=== PATIENT | female | born 1970 | race Caucasian/White ===

== ENCOUNTER 2016-11-15 11:02 | Day surgery (SDC) | payer MEDICAID ==
[2016-11-14 16:41] VITALS: Ht 162.6 cm; Wt 75.0 kg
[2016-11-15] VITALS (20 sets, daily range): BP systolic 90–168; BP diastolic 57–74; PULSE 64–80; RESP 14–19
[~2016-11-15] VITALS: Ht 162.6 cm; Wt 75.0 kg
[~2016-11-15 11:02] MED LIST: DIPHENHYDRAMINE 50 MG INJ IV PRN; HYDROmorphONE (0.2 MG/ML) 10ML SYG IV PRN; KETOROLAC 15 MG INJ IV ONE; MEPERIDINE 25 MG INJ IV PRN; METOCLOPRAMIDE 10 MG INJ IV PRN; ONDANSETRON 4 MG INJ IV PRN; OXYCODONE/ACETAMINOPHEN (5/325) TAB PO PRN; PROCHLORPERAZINE 10 MG INJ IV PRN
[2016-11-15 11:55] LABS: BASOPHILS % 0.7 % (0.0-2.0); EOSINOPHILS # 0.1 10^3/ul (0.0-0.5); EOSINOPHILS % 1.7 % (0.0-7.0); HEMATOCRIT 32.4 % (37.0-47.0); HEMOGLOBIN 10.6 g/dl (12.0-16.0); LYMPHOCYTES # 0.9 10^3/ul (0.8-2.9); MEAN CORPUSCULAR HEMOGLOBIN 25.7 pg (29.0-33.0); MEAN CORPUSCULAR HGB CONC 32.8 g/dl (32.0-37.0); MEAN CORPUSCULAR VOLUME 78.2 fl (82.0-101.0); MEAN PLATELET VOLUME 7.7 fl (7.4-10.4); MONOCYTE # 0.2 10^3/ul (0.3-0.9); MONOCYTES % 3.2 % (0.0-11.0); NEUTROPHIL # 5.7 10^3/ul (1.6-7.5); NEUTROPHILS % 81.4 % (39.0-77.0); PLATELET COUNT 389 10^3/UL (140-440); RED BLOOD COUNT 4.15 10^6/ul (4.20-5.40); RED CELL DISTRIBUTION WIDTH 19.8 % (11.5-14.5)
[2016-11-15] MEDS ORDERED: SOD CHLORIDE 0.9% 1,000 ML IV ONE (12:00)
[2016-11-15] MEDS ORDERED: CEFAZOLIN 2 GM/50 ML (PMX) 50 ML IVPB ONE (12:00)
[2016-11-15 12:06] LABS: INR 1.01; PROTIME 13.3 Sec (12.2-14.2)
[2016-11-15 12:07] LABS: PARTIAL THROMBOPLASTIN TIME 32.4 Sec (25.0-35.0)
[2016-11-15 12:09] LABS: CALCIUM 8.5 mg/dl (8.4-10.2); CREATININE 0.64 mg/dl (0.44-1.00); POTASSIUM 4.1 mmol/L (3.5-5.1)
[2016-11-15 12:30] LABS: CONDITION 1; LH ANALYZER COMMENTS 1
[2016-11-15] MEDS ORDERED: MIDAZOLAM 1 MG/ML 2 ML INJ ONE (12:55)
[2016-11-15] MEDS ORDERED: PROPOFOL 20 ML ONE (12:55)
[2016-11-15] MEDS ORDERED: LIDOCAINE 2% (SDV) 5 ML INJ ONE (12:55)
[2016-11-15] MEDS ORDERED: FENTAnyl 50 MCG/ML VIAL ONE (12:55)
[2016-11-15] MEDS ORDERED: CEFAZOLIN 1 GM INJ ONE (12:55)
[2016-11-15] MEDS ORDERED: morphine 2 MG INJ IV PRN (15:00)
[2016-11-15] MEDS ORDERED: ONDANSETRON 4 MG INJ IV PRN (15:00)
[2016-11-15] MEDS ORDERED: ACETAMINOPHEN 1000MG/100ML IV 100 ML IVPB PRN (15:00)
[2016-11-15] MEDS ORDERED: ONDANSETRON 4 MG INJ ONE (15:24)
[2016-11-15] MEDS ORDERED: METOCLOPRAMIDE 10 MG INJ ONE (15:24)
[2016-11-15] MEDS ORDERED: HYDROmorphONE 2 MG/ML SYG ONE (15:41)
--- NOTE | 2016-11-15 16:58 | OPR ---
DATE OF OPERATION: 11/15/2016 PREOPERATIVE DIAGNOSIS: Inflammatory cancer, left breast. POSTOPERATIVE DIAGNOSIS: Inflammatory cancer, left breast. OPERATION PERFORMED: Left modified radical mastectomy. ANESTHESIA: General. ANESTHESIOLOGIST: Joan Cole MD SURGEON: Ovidio Gore MD RENAL MEDICINE SPECIALIST: Dr. Lovell INDICATIONS FOR PROCEDURE: The patient is a 46-year-old female who presented with inflamed left yissel ast, highly suspicious for inflammatory cancer which was confirmed on biopsy. The patient then rece ived neoadjuvant chemotherapy. She has completed it with very good response. She now presents for left modified radical mastectomy. DESCRIPTION OF PROCEDURE: The patient was brought to the operating theater, placed under general en dotracheal tube anesthesia. The left breast and axillary regions were prepped and draped in usual s terile fashion. Planned elliptical incision around the nipple areolar complex and additional skin o f the breasts was demarcated with marking pen and carried out with 15 blade scalpel. Subcutaneous t issue was dissected with cautery. Allis-Tyron clamps were then used to elevate the skin edges, and skin flaps were created with cautery sequentially, first to the clavicle superiorly, then to the clayton rnal border medially, to the inframammary fold inferiorly, and laterally until the latissimus dorsi muscle had been identified throughout its course. Mastectomy then took place from medial to lateral using cautery. At the border of the pectoralis major muscle, the pectoralis minor muscle was ident ified. The clavipectoral fascia was incised with blunt dissection along the chest wall. The long t horacic nerve was identified and kept out of harm's way. More superiorly, the axillary vein was leonora ntified and dissected from medial to lateral. The thoracodorsal neurovascular bundle was then ident ified and kept out of harm's way. Node bearing tissue between the long thoracic nerve and the thora codorsal nerve was meticulously harvested using the LigaSure device. Final connective tissue attach ments to latissimus dorsi muscle were then transected with cautery. The specimen was removed, orien aba, and sent for permanent pathologic analysis. The wound was irrigated. Minimal residual bleedin g was controlled with cautery. Two #10 flat Calvin-Trejo drains were then brought through the left mid axillary line. One was cut to size and laid within the axilla. The other was laid over the pe ctoralis major muscle. Both drains were secured in place in the standard fashion with a 2-0 nylon s uture. The skin was then reapproximated with a deep dermal layer of 4-0 Vicryl sutures, followed by final skin approximation with 5-0 PDS. Benzoin and Steri-Strips were then applied. The patient to lerated the procedure well. The estimated blood loss was 30 mL. There were no complications, and t he patient was transported in stable condition to the recovery room. Dictated By: OVIDIO PINZON/SALTY Conf#: [id number] DID#: [id number]
[2016-11-15] MEDS: FENTAnyl 50 MCG/ML VIAL IV PRN ×3 (17:24→18:26)
--- NOTE | 2016-11-15 18:15 | HP ---
DATE OF ADMISSION: 11/15/2016 CHIEF COMPLAINT AND HISTORY OF PRESENT ILLNESS: The patient is a 46-year-old female with a known hi story of left breast cancer. Patient subsequently underwent neoadjuvant chemotherapy. The patient had a good clinical response and was seen by Dr. Gore as an outpatient. The patient underwent left modified radical mastectomy. The patient had significant postoperative pain and is being admitted for further evaluation and management. The patient denied any recent history of nausea, vomiting, o r diarrhea. No history of headache, dizziness, syncope. No history of angina. No history of hyper tension or diabetes. No history of fever or chills. No history of dysuria or hematuria. REVIEW OF SYSTEMS: Unremarkable. PAST SURGICAL HISTORY: Patient is status post Port-A-Cath placement. ALLERGIES: NONE. SOCIAL HISTORY: No history of smoking or alcohol. FAMILY HISTORY: Patient's maternal aunt has history of breast cancer. MEDICATIONS PRIOR TO ADMISSION: None. PHYSICAL EXAMINATION: GENERAL: The patient is conscious, awake, alert. VITAL SIGNS: Blood pressure 164/72, pulse 68, respirations 18, temperature 97.6. HEENT: Atraumatic, normocephalic. Conjunctivae and lids normal. Oropharynx clear. NECK: Supple. No mass, no thyromegaly. CHEST: Fairly clear. No use of accessory muscles. CARDIOVASCULAR: S1, S2 normal. No murmur, gallop, or rub. ABDOMEN: Soft, nondistended, nontender. Bowel sounds plus. EXTREMITIES: No leg edema. Pedal pulses palpable. SKIN: Without acute rash or ulcer. NEUROLOGIC: The patient is awake, alert, oriented with no gross focal deficit. LABORATORY DATA: WBC 7, hemoglobin 10.6, platelets 39. Sodium 142, potassium 4.1, BUN 10, creatin ine 0.6, glucose 93, calcium 8.4. The patient also had echocardiogram done in July 2016, which revealed EF of 60%. IMPRESSION: Left breast cancer status post chemotherapy. Today, underwent left modified radical m astectomy. PLAN: Patient admitted on medical floor. Patient will be started on clear liquid diet, advance as tolerated. Patient will be given IV Tylenol, Percocet and IV morphine for pain control, depending o n the severity. The patient will also be given IV fluid. Patient will have SCD for DVT prophylaxis and Zofran for nausea, vomiting. Further recommendation will depend on patient's hospital course a nd recommendations from surgery. Dictated By: HARSH DAHL/SALTY Conf#: [id number] DID#: [id number]
[2016-11-15] MEDS: D5W-0.45 NACL + KCL 20 MEQ 1,000 ML IV SCH ×2 (20:10→21:39)
[2016-11-16] VITALS: BP 90/55; RESP 16
[2016-11-16 04:00] VITALS: BP 97/59; PULSE 77; RESP 18
[2016-11-16] MEDS: D5W-0.45 NACL + KCL 20 MEQ 1,000 ML IV SCH ×2 (04:30→04:55)
[2016-11-16 07:49] VITALS: BP 89/53; RESP 20
[2016-11-16] MEDS: FENTAnyl 50 MCG/ML VIAL IV PRN (07:49)
--- NOTE | 2016-11-16 09:11 | PN ---
Date/Time of Note Date/Time of Note DATE: 11/16/16 TIME: 09:11 Assessment/Plan VTE Prophylaxis VTE Prophylaxis Intervention: other Lines/Catheters IV Catheter Type (from Nrsg): Peripheral IV Assessment/Plan Chief Complaint/Hosp Course 1) breast cancer - s/p mastectomy Problems: Subjective 24 Hr Interval Summary Free Text/Dictation Patient complain of some pain but controlled Exam/Review of Systems Vital Signs Vitals Vital Signs Date Time Temp Pulse Resp B/P Pulse Ox O2 Delivery O2 Flow Rate FiO2 11/16/16 07:49 97.8 74 20 89/53 97 11/16/16 04:00 Room Air Intake and Output 11/15/16 11/15/16 11/16/16 15:00 23:00 07:00 Intake Total 1040 ml 1262 ml Output Total 30 ml Balance 1010 ml 1262 ml Exam Constitutional: well developed Head: atraumatic, normocephalic Neck: supple Respiratory: clear to auscultation Cardiovascular: regular rate and rhythm Gastrointestinal: non-tender, soft Results Result Diagram: 11/15/16 1135 11/15/16 1135 Results 24 hrs Laboratory Tests Test 11/15/16 11:35 Activated Partial Thromboplast Time 32.4 Anion Gap 15 Basophils # 0.0 Basophils % 0.7 Blood Morphology Comment Blood Urea Nitrogen 10 Calcium Level 8.5 Carbon Dioxide Level 24 Chloride Level 107 Creatinine 0.64 Eosinophils # 0.1 Eosinophils % 1.7 Glucose Level 93 Hematocrit 32.4 L Hemoglobin 10.6 L INR International Normalized Ratio 1.01 Lymphocytes # 0.9 Lymphocytes % 13.0 L Mean Corpuscular Hemoglobin 25.7 L Mean Corpuscular Hemoglobin Concent 32.8 Mean Corpuscular Volume 78.2 L Mean Platelet Volume 7.7 Monocytes # 0.2 L Monocytes % 3.2 Neutrophils # 5.7 Neutrophils % 81.4 H Nucleated Red Blood Cells # 0.0 Nucleated Red Blood Cells % 0.0 Platelet Count 389 Potassium Level 4.1 Prothrombin Time 13.3 Prothrombin Time Ratio 1.0 Red Blood Count 4.15 L Red Cell Distribution Width 19.8 H Sodium Level 142 White Blood Count 7.0 Medications Medications Current Medications Ondansetron HCl 4 mg 4 mg Q6H PRN IV NAUSEA AND/OR VOMITING; Start 11/15/16 at 15:00 Potassium Chloride/Dextrose/ Sod Cl (D5-1/2ns + KCl 20 Meq) 1,000 ml @ 125 mls/ hr Q8H IV Last administered on 11/16/16t 04:30; Admin Dose 125 MLS/HR; Start at 14:36 Morphine Sulfate 2 mg 2 mg Q1H PRN IV PAIN; Start 11/15/16 at 15:00 Acetaminophen (Ofirmev 1000mg/ 100ml Iv) 100 ml @ 400 mls/hr Q6H PRN IVPB PAIN ; Start 11/15/16 at 15:00 MAIRVEL DOSS Nov 16, 2016 09:11
--- NOTE | 2016-11-16 13:57 | PN ---
DATE: 11/16/2016 SUBJECTIVE: The patient states that she has swelling of the lower extremity and the dorsum of the r ight hand. She does not have that much pain, but even though, she got 1 dose of 2 mg of morphine se veral hours ago. She has been urinating and has had a bowel movement today. No fevers, no chills. OBJECTIVE: GENERAL: Awake, alert, oriented x3, currently sitting in the bed. VITAL SIGNS: Temperature 97.8, heart rate 74 and regular, respirations 20, blood pressure 89/53, sa turations 97%. The chest dressing is intact. Calvin-Trejo drainage tube is draining serosanguineous. Altogether it has drained about 30 mL since the operation. The dressing is not that tight. I examined the dorsum of the right hand. There is trace pitting edema, but there is no edema on the forearm or arm. The lower extremities, probably there is 1+ or trace pitting edema bilaterally over the anterior tibial. The patient denies any leg pain, thigh pain, abdominal pain, or chest pain. There is no swelling of the dorsum of the left hand, the side that the patient has had the operation . There is an IV running on the right antecubital fossa area. ASSESSMENT: Patient is a 46-year-old status post chemotherapy for inflammatory cancer of the breast and is status post a modified radical mastectomy yesterday, done by Dr. Gore. Today the patient i s complaining of some edema of the lower extremity and right hand. I examined the patient already a nd I cannot find any reason for this. I am not sure exactly what is going on. Just to be on the saf e side and not to miss anything, we are going to get a Doppler venous evaluation of the lower extrem ity and upper extremity on the right side to rule out deep venous thrombosis. Also will check a CBC and CMP today before the patient goes home. Dictated By: JESSE ZAVALA/SALTY Conf#: [id number] DID#: [id number]
--- NOTE | 2016-11-16 14:05 | RADRPT ---
PROCEDURE: US bilateral lower extremity veins. CLINICAL INDICATION: Bilateral leg pain and swelling. TECHNIQUE: Multiple longitudinal and transverse images of the bilateral lower extremity veins were obtained with lemon scale and color Doppler imaging. The common femoral vein, femoral vein, and popl iteal vein were evaluated. 2D grayscale measurements with compression sonography, color Doppler, and pulsed Doppler with augmentation. COMPARISON: No prior studies are available for comparison. FINDINGS: The bilateral common femoral, femoral and popliteal veins are normally compressible throughout. Col or flow demonstrates normal filling of the vessels. Normal waveforms are visualized and there is no rmal response to augmentation. IMPRESSION: 1. No evidence of deep vein thrombosis involving either lower extremity. RPTAT: QQ .Oh Barragan MD, MD Date Time Electronically viewed and signed by .Oh Barragan MD, on 11/16/2016 14:04 .R/
--- NOTE | 2016-11-16 14:14 | RADRPT ---
PROCEDURE: Right upper extremity venous ultrasound CLINICAL INDICATION: Right arm pain and swelling, deep venous thrombosis TECHNIQUE: Aceves scale, color doppler, spectral doppler ultrasound imaging of the venous system of the right upper extremity. Augmentation maneuvers were utilized. COMPARISON: No prior studies are available for comparison. FINDINGS: RIGHT: Internal jugular vein: Patent. Subclavian vein: Patent. Axillary vein: Patent. Brachial vein: Patent. Basilic vein: Patent. Cephalic vein: Patent. Radial vein: Patent. Ulnar vein: Patent. IMPRESSION: No evidence of a deep vein thrombosis involving the right upper extremity. RPTAT: AADD .Beny Donahue MD, MD Date Time Electronically viewed and signed by .Beny Donahue MD, on 11/16/2016 14:14 .B/
[2016-11-16 15:09] LABS: BASOPHIL # 0.1 10^3/ul (0.0-0.1); BASOPHILS % 0.8 % (0.0-2.0); EOSINOPHILS # 0.1 10^3/ul (0.0-0.5); EOSINOPHILS % 1.7 % (0.0-7.0); HEMATOCRIT 28.9 % (37.0-47.0); HEMOGLOBIN 9.6 g/dl (12.0-16.0); LYMPHOCYTES # 0.8 10^3/ul (0.8-2.9); LYMPHOCYTES % 10.1 % (15.0-51.0); MEAN CORPUSCULAR HEMOGLOBIN 26.1 pg (29.0-33.0); MEAN CORPUSCULAR HGB CONC 33.2 g/dl (32.0-37.0); MEAN CORPUSCULAR VOLUME 78.7 fl (82.0-101.0); MEAN PLATELET VOLUME 7.5 fl (7.4-10.4); MONOCYTE # 0.3 10^3/ul (0.3-0.9); MONOCYTES % 3.8 % (0.0-11.0); NEUTROPHIL # 6.2 10^3/ul (1.6-7.5); NEUTROPHILS % 83.6 % (39.0-77.0); PLATELET COUNT 382 10^3/UL (140-440); RED BLOOD COUNT 3.67 10^6/ul (4.20-5.40); RED CELL DISTRIBUTION WIDTH 20.1 % (11.5-14.5); UNCORRECTED WBC 7.4 10^3/ul (4.8-10.8); WHITE BLOOD COUNT 7.4 10^3/ul (4.8-10.8)
[2016-11-16 15:14] LABS: CONDITION 1; LH ANALYZER COMMENTS 1
[2016-11-16 15:33] LABS: ALBUMIN 2.8 g/dl (3.3-4.9)
[2016-11-16 15:36] LABS: BILIRUBIN,INDIRECT 0.1 mg/dl (0-1.1); BILIRUBIN,TOTAL 0.1 mg/dl (0.2-1.3); CREATININE 0.62 mg/dl (0.44-1.00)
[2016-11-16 15:37] LABS: CALCIUM 7.6 mg/dl (8.4-10.2); TOTAL PROTEIN 5.6 g/dl (6.1-8.1)
--- NOTE | 2016-11-16 16:21 | DS ---
Date/Time of Note Date/Time of Note DATE: 11/16/16 TIME: 16:20 Discharge Summary Admission/Discharge Info Admit Date/Time 11/15/16 Discharge Date/Time 11/16/16 Final Diagnosis left breast cancer Patient Condition: Fair Consults surgery Hospital Course Patient with breast cancer comes in for mastectomy. She tolerated the procedure and when cleared by surgery, she was sent home. 1) breast cancer - s/p mastectomy Home Meds No Active Prescriptions or Reported Meds Pending Labs Laboratory Tests Test 11/16/16 14:55 Alanine Aminotransferase (ALT/SGPT) 36IU/L (13-69) Albumin 2.8g/dl (3.3-4.9) Albumin/Globulin Ratio 1.00 Alkaline Phosphatase 210IU/L (42-121) Anion Gap 13 (8-16) Aspartate Amino Transf (AST/SGOT) 49IU/L (15-46) Basophils # 0.110^3/ul (0.0-0.1) Basophils % 0.8% (0.0-2.0) Blood Morphology Comment Blood Urea Nitrogen 6mg/dl (7-20) Calcium Level 7.6mg/dl (8.4-10.2) Carbon Dioxide Level 23mmol/L (21-31) Chloride Level 110mmol/L (97-110) Creatinine 0.62mg/dl (0.44-1.00) Direct Bilirubin 0.00mg/dl (0.00-0.20) Eosinophils # 0.110^3/ul (0.0-0.5) Eosinophils % 1.7% (0.0-7.0) Globulin 2.80g/dl (1.3-3.2) Glucose Level 106mg/dl (70-220) Hematocrit 28.9% (37.0-47.0) Hemoglobin 9.6g/dl (12.0-16.0) Indirect Bilirubin 0.1mg/dl (0-1.1) Lymphocytes # 0.810^3/ul (0.8-2.9) Lymphocytes % 10.1% (15.0-51.0) Mean Corpuscular Hemoglobin 26.1pg (29.0-33.0) Mean Corpuscular Hemoglobin Concent 33.2g/dl (32.0-37.0) Mean Corpuscular Volume 78.7fl (82.0-101.0) Mean Platelet Volume 7.5fl (7.4-10.4) Monocytes # 0.310^3/ul (0.3-0.9) Monocytes % 3.8% (0.0-11.0) Neutrophils # 6.210^3/ul (1.6-7.5) Neutrophils % 83.6% (39.0-77.0) Nucleated Red Blood Cells # 0.010^3/ul (0.0-0.0) Nucleated Red Blood Cells % 0.0/100WBC (0.0-0.0) Platelet Count 13990^3/UL (140-440) Potassium Level 4.0mmol/L (3.5-5.1) Red Blood Count 3.6710^6/ul (4.20-5.40) Red Cell Distribution Width 20.1% (11.5-14.5) Sodium Level 142mmol/L (135-144) Total Bilirubin 0.1mg/dl (0.2-1.3) Total Protein 5.6g/dl (6.1-8.1) White Blood Count 7.410^3/ul (4.8-10.8) MARIVEL DOSS Nov 16, 2016 16:21
--- NOTE | 2016-11-16 18:26 | PN ---
DATE: 11/16/2016 SUBJECTIVE: As was mentioned in my morning progress note, the patient said that she feels that she has swelling of the lower extremities and dorsum of the right hand. So, we decided to proceed with evaluation of the deep venous system. The ultrasound of both lower extremities and right upper extremity was done. The report states no evidence of deep vein thrombosis involving the right upper extremity #1, and for the lower extremity, the ultrasound report states that there is no evidence of deep vein thrombosis involving either lower extremity. Then, the blood test which was done today revealed a WBC 7400 , which is normal as before operation. Hemoglobin is almost at the range of preoperation which is 9.6 and hematocrit 29.8. Platelets 382, the same. Chemistry today reveals BUN of 6, creatinine 0.62. Calcium is 7.6, which is low (it should mentioned that albumin is 2.8 which explains low calcium as well) . Alkaline phosphatase is 210 high, and total protein is 5.6, and albumin is 2.8. This low protein and albumin can explain evidence of trace pitting edema of both lower extremities and right hand edema. I discussed the findings with the patient and patient's family including her daughter and they agree that the patient has not been eating well in the past couple of months or so. In any case, the patient can be discharged from surgical point of view. The nurses will check with Dr. Meyer, who is covering for Dr. Cr and then if they decide, they can discharge the patient.follow up by Dr. Gore. Dictated By: JESSE ZAVALA/SALTY Conf#: [id number] DID#: [id number] MTDD
== END 2016-11-16 16:50 | disposition home or self-care (01) ==
LOC: SDS 11:02 → MS2 18:40 → SDS 11-16 16:50
PROVIDERS: ATTEND Surgery Surgical Oncology
DX: D05.12 Intraductal carcinoma in situ of left breast (principal)
CPT/HCPCS: 19307; 80048; 80053; 84703; 85025; 85610; 85730; 88305; 93970; 93971; J0690; J1170; J2250; J2270; J2405; J2765; J3010; J3480; Z7512; Z7610

== ENCOUNTER 2016-12-10 11:11 | Emergency (ER) | payer MEDICAID ==
[~2016-12-10] VITALS: Ht 160 cm; Wt 74.0 kg
[2016-12-10 11:14] VITALS: Ht 160 cm; Wt 74.0 kg
--- NOTE | 2016-12-10 12:41 | RADRPT ---
PROCEDURE: XR Chest AP portable CLINICAL INDICATION: Short of breath, cough TECHNIQUE: An AP portable radiograph of the chest was submitted. COMPARISON: None. FINDINGS: Support Hardware: A right subclavian Port-A-Cath is evident with the tip at the atriocaval junction. Cardiovascular: The cardiovascular silhouette appears unremarkable. Lung Blount: Infiltrates are seen within the lower lung zones bilaterally. Pleural Spaces: There is a small left pleural fluid accumulation. No pneumothorax is evident. Osseous Structures: There is an old fracture deformity involving the distal third of the right clavi sreedhar. Soft Tissues: The left breast is not identified. IMPRESSION: 1. Right-sided Port-A-Cath satisfactorily positioned. 2. Bilateral lower lung zone alveolar infiltrates. 3. Small left pleural fluid accumulation 4. Old fracture deformity involving the right clavicle. 5. Absent left breast. Physician Lluvia Date Time Electronically viewed and signed by Physician Lluvia on 12/10/2016 12:40 /
[2016-12-10] MEDS ORDERED: AZITHROMYCIN 250 MG TAB PO STA (12:57)
[2016-12-10] MEDS ORDERED: AZIT250T94 PO (13:02)
[2016-12-10] MEDS ORDERED: PROM25TA14 PO (13:03)
[2016-12-10] MEDS ORDERED: ACET325T33 PO (13:04)
--- NOTE | 2016-12-10 13:20 | ERD ---
ER Documentation Chief Complaint Date/Time DATE: 12/10/16 TIME: 13:08 Chief Complaint fever and cough x 3 days with SOB on exertion HPI This is a 46-year-old female with a history of breast carcinoma stage IV presenting to the emergency room complaining of fever, cough and shortness of breath with deep inhalation for the past 3 days. Patient states that she had a lumpectomy last month, she states that she is unsure if that it metastases her lungs. Patient states that she started chemo in September. She denies taking any other medications. ROS All systems reviewed and are negative except as per history of present illness. Medications Home Meds Active Scripts Acetaminophen* (Tylenol*) 325 Mg Tablet, 2 TAB PO Q4 Y for PAIN AND OR ELEVATED TEMP, #30 TAB Prov:SIMON KING PA-C 12/10/16 Promethazine Hcl* (Phenergan*) 25 Mg Tablet, 25 MG PO Q6 Y for NAUSEA AND/OR VOMITING, #10 TAB Prov:SIMON KING PA-C 12/10/16 Azithromycin* (Zithromax*) 250 Mg Tablet, 250 MG PO DAILY for 4 Days, TAB Prov:SIMON KING PA-C 12/10/16 Allergies Allergies: Coded Allergies: No Known Allergy (Unverified , 11/14/16) PMhx/Soc History of Surgery: Yes (LT BREAST SX ON 11/15/16) Anesthesia Reaction: No Hx Neurological Disorder: No Hx Respiratory Disorders: No Hx Cardiac Disorders: No Hx Psychiatric Problems: No Hx Miscellaneous Medical Probl: Yes (LT BREAST CANCER 2016) Hx Alcohol Use: No Hx Substance Use: No Hx Tobacco Use: No Smoking Status: Never smoker Physical Exam Vitals Vital Signs Date Time Temp Pulse Resp B/P Pulse Ox O2 Delivery O2 Flow Rate FiO2 12/10/16 11:14 98.5 69 18 119/61 99 Physical Exam GENERAL: well-developed/well-nourished, in no apparent distress, non-toxic appearing HEAD: NC/AT, no swelling noted in frontal or maxillary areas EARS: bilateral tympanic membrane is intact without erythema or effusion NARES: nares patent, rhinorrhea and congested THROAT: oropharynx erythematous without exudates, no tonsil enlargement, post nasal drip EYES: Conjunctiva normal NECK: Supple, no lymphadenopathy PULM: Bilateral decreased breath sounds CV: Normal S1S2, RRR, good capillary refill GI: Soft, non-distended, normal bowel sounds, non-tender BACK: No midline tenderness, no masses EXT No clubbing, cyanosis, or edema NEURO: Alert and Orientated SKIN: Intact, normal turgor PSYCH: Normal mood and mentation Results 24 hrs Current Medications Medications (Trade) Dose Ordered Sig/Krystina Route PRN Reason Start Time Stop Time Status Last Admin Dose Admin Azithromycin (Zithromax) 500 mg ONCE STAT PO 12/10/16 12:57 12/10/16 12:59 DC Procedures/MDM This is a 46-year-old female history of breast carcinoma stage IV did chemo in September with a lumpectomy on November 15 presenting to the emergency department with complaint of fever, cough, shortness of breath on exertion for the past 3 days. Patient appears well, she is speaking clearly. Patient is not tachycardic her pulse is 69 and she is breathing well on room air. Patient's pulse ox was 99%. On examination patient had mild decreased breath sounds in the lower lobes. A chest x-ray was done and radiologist stated: 1. Right-sided Port-A-Cath satisfactorily positioned. 2. Bilateral lower lung zone alveolar infiltrates. 3. Small left pleural fluid accumulation 4. Old fracture deformity involving the right clavicle. 5. Absent left breast. EKG was done and did not show any evidence of T-wave abnormalities. At this time it appears that patient has bilateral pneumonia with a small left pleural fluid accumulation. I will low suspicion for pulmonary embolism, she is not tachycardic and she is breathing well on room air, she seems to be in no distress. In the ED patient was given first dose of azithromycin and will be given prescription for the next 4 days. I discussed with patient to follow-up with her primary care physician tomorrow and to return to the ER for any worsening signs or symptoms. I did consult with my supervising physician who agreed with my plan above. Patient stable for discharge and she understands and agrees with my plan Departure Diagnosis: Primary Impression: Bilateral pneumonia Pneumonia type: due to unspecified organism Lung location: lower lobe of lung Qualified Code: J18.9 - Pneumonia of both lower lobes due to infectious organism Condition: Stable Patient Instructions: Pleural Effusion, What Is Pneumonia?, Pneumonia (Adult) Referrals: DOCTOR,NOT ON STAFF (PCP) Additional Instructions: FOLLOW UP WITH YOUR PRIMARY CARE PHYSICIAN TOMORROW.Return to this facility if you are not improving as expected. Take all medicines as directed. Return to this facility if you are not improving as expected. SIMON KING PA-C Dec 10, 2016 13:20
== END 2016-12-10 13:49 | disposition home or self-care (01) ==
LOC: FTE 11:11
DX: J18.9 Pneumonia, unspecified organism (principal); Z85.3 Personal history of malignant neoplasm of breast
CPT/HCPCS: 71010; 93005; Z7610

== ENCOUNTER 2017-07-15 09:30 | Day surgery (SDC) | payer MEDICAID ==
[~2017-07-15] VITALS: Ht 160 cm; Wt 73.7 kg
[~2017-07-15 09:30] MED LIST changes: +ACET325T33 PO; +AZIT250T94 PO; -DIPHENHYDRAMINE 50 MG INJ IV PRN; -HYDROmorphONE (0.2 MG/ML) 10ML SYG IV PRN; -KETOROLAC 15 MG INJ IV ONE; -MEPERIDINE 25 MG INJ IV PRN; -METOCLOPRAMIDE 10 MG INJ IV PRN; -ONDANSETRON 4 MG INJ IV PRN; -OXYCODONE/ACETAMINOPHEN (5/325) TAB PO PRN; -PROCHLORPERAZINE 10 MG INJ IV PRN; +PROM25TA14 PO
[2017-07-15 10:52] VITALS: BP 109/80; PULSE 81; RESP 16; Ht 160 cm; Wt 73.7 kg
[2017-07-15 11:40] LABS: INR 1.06; PROTIME 13.8 Sec (12.2-14.2); PT RATIO 1.1
[2017-07-15 13:05] LABS: PARTIAL THROMBOPLASTIN TIME 30.9 Sec (25.0-35.0)
[2017-07-15] MEDS ORDERED: LIDOCAINE 1% (MPF) 5 ML VIAL ONE (13:05)
--- NOTE | 2017-07-15 13:15 | RADRPT ---
PROCEDURE: XR Chest. CLINICAL INDICATION: Status post thoracentesis TECHNIQUE: Single portable view of the chest was obtained COMPARISON: 12/10/2016 FINDINGS: There is no evidence of pneumothorax status post thoracentesis. The heart is normal in size. There is a right chest wall port in place. There is a small to moderate left pleural effusion. There are bibasilar atelectatic changes. RPTAT:AA IMPRESSION: No pneumothorax status post thoracentesis. .Yahir Salcido MD, Date Time Electronically viewed and signed by .Yahir Salcido MD, on 07/15/2017 13:15 .S/
--- NOTE | 2017-07-15 13:16 | RADRPT ---
PROCEDURE: Ultrasound guided thoracentesis CLINICAL INDICATION: Pleural fluid TECHNIQUE: Multiple sonographic images were obtained through the patient's chest. A site in the p vasyl's RIGHT lower chest was selected and marked. The area was prepped and draped in the usual clayton rile fashion. 1% lidocaine was utilized. A 19-gauge Yueh needle was advanced into the pleural space and the introducer was connected to a vacuum drainage system. A total of 820 cc of clear yellow fl uid were drained at the end of the procedure. The patient tolerated the procedure well. The specimen was sent for laboratory evaluation. RPTAT: AA COMPARISON: None FINDINGS: Pleural effusion. RPTAT: AA IMPRESSION: Uncomplicated ultrasound-guided thoracentesis. .Yahir Salcido MD, Date Time Electronically viewed and signed by .Yahir Salcido MD, MD on 07/15/2017 13:16 .S/
[2017-07-15 13:30] VITALS: BP 94/55; PULSE 69; RESP 16
[2017-07-15] MEDS ORDERED: ACETAMINOPHEN 325 MG TAB PO PRN (13:46)
[2017-07-15] MEDS ORDERED: ACETAMINOPHEN 325 MG TAB ONE (13:46)
--- NOTE | 2017-07-15 17:04 | RADRPT ---
PROCEDURE: XR Chest. CLINICAL INDICATION: Shortness of breath. Post thoracentesis TECHNIQUE: A single portable view of the chest was obtained. COMPARISON: 07/15/2017 from 01:04 p.m. FINDINGS: Right chest wall port is once again seen. The cardiomediastinal silhouette is within normal limits. A left pleural effusion is seen with left basilar atelectasis and has not changed significantly. The remaining lungs and pleural spaces are clear. The soft tissues and osseous structures are unremark able. IMPRESSION: Left pleural effusion with left basilar atelectasis which has not changed significantly. RPTAT: HPNM Physician Karlee Date Time Electronically viewed and signed by Sterling Bond Physician on 07/15/2017 17:03 /
== END 2017-07-15 18:26 | disposition home or self-care (01) ==
LOC: SDS 09:30
PROVIDERS: ATTEND Internal Medicine Hematology & Oncology
DX: J90 Pleural effusion, not elsewhere classified (principal); C50.912 Malignant neoplasm of unspecified site of left female breast
CPT/HCPCS: 71010; 76942; 85610; 85730

== ENCOUNTER 2017-08-01 08:05 | Day surgery (SDC) | payer MEDICAID ==
[~2017-08-01] VITALS: Ht 160 cm; Wt 74.6 kg
[2017-08-01] MEDS ORDERED: LEVO750T25 PO (08:37)
[2017-08-01 08:59] VITALS: Ht 160 cm; Wt 74.6 kg
[2017-08-01 09:00] VITALS: BP 109/73; PULSE 104; RESP 18
[2017-08-01] MEDS ORDERED: LIDOCAINE 1% (MPF) 5 ML VIAL ONE (11:21)
--- NOTE | 2017-08-01 11:31 | RADRPT ---
PROCEDURE: XR Chest. CLINICAL INDICATION: Status post thoracentesis TECHNIQUE: Single portable view of the chest was obtained COMPARISON: US 08/01/2017; CHEST 07/15/2017; MELLO CHEST 12/10/2016 FINDINGS: There is no evidence of pneumothorax status post thoracentesis. The heart is normal in size. There is right lower lobe atelectasis and small right pleural effusion. There is a right chest wall port in place. There is mild elevation of the right diaphragm. RPTAT:AA IMPRESSION: No pneumothorax status post thoracentesis. .Yahir Salcido MD, MD Date Time Electronically viewed and signed by .Yahir Salcido MD, MD on 08/01/2017 11:31 .S/
--- NOTE | 2017-08-01 11:42 | RADRPT ---
PROCEDURE: US guided left thoracentesis. CLINICAL INDICATION: Shortness of breath. Left pleural effusion. TECHNIQUE: Prior to the procedure, informed consent was obtained. The risks, benefits, and alternatives were e xplained to the patient or the patient's family, including but not limited to bleeding, infection, p ain, visceral or vascular damage, shock, pneumothorax, chest tube placement, air embolism, and . The patient or the patient's family understood the risks and the alternatives and wished to proce ed with the study. Informed written consent was obtained. A procedural pause was performed. The patient's name, date of , and procedure to be performed were verified. Ultrasound of the left hemithorax was performed in the axial and sagittal planes. A left pleural eff usion is noted. Utilizing ultrasound guidance, optimal location for entry to the pleural cavity was ascertained. The overlying skin was prepped and draped in the usual sterile fashion. Approximately 10 ml of 1% Xylocaine was injected locally for pain control. Using ultrasound guidance, a 5-[place] Yueh catheter was introduced into the left pleural space without difficulty. Fluid was aspirated. COMPARISON: Chest x-ray dated 07/15/2017. FINDINGS: Initial ultrasound demonstrates fluid in the left pleural space. Approximately 1.05 liters of serou s fluid was aspirated and discarded. IMPRESSION: 1. Satisfactory ultrasound-guided left thoracentesis. RPTAT: QQ .Oh Barragan MD, MD Date Time Electronically viewed and signed by .Oh Barragan MD, on 08/01/2017 11:42 .R/
[2017-08-01 12:17] VITALS: BP 109/73; PULSE 94; RESP 18
== END 2017-08-01 13:35 | disposition home or self-care (01) ==
LOC: SDS 08:05
PROVIDERS: ATTEND Internal Medicine Hematology & Oncology
DX: J90 Pleural effusion, not elsewhere classified (principal); C50.912 Malignant neoplasm of unspecified site of left female breast
CPT/HCPCS: 32555; 71010; Z7610

== ENCOUNTER 2017-10-17 07:27 | Day surgery (SDC) | END 2017-10-17 12:48 | disposition home or self-care (01) ==

== ENCOUNTER 2017-10-24 13:55 | Inpatient (IN) | END 2017-11-03 16:31 | disposition home or self-care (01) | DRG 181 ==